=== PATIENT | male | born 1975 | race Caucasian/White ===

== ENCOUNTER 2020-02-18 10:34 | Emergency (ER) | payer BC ==
[2020-02-18 11:31] LABS: HEMATOCRIT 45.1 % (42.0-52.0); HEMOGLOBIN 14.8 g/dL (13.5-18.0); MEAN CELL VOLUME 93 fl (78-100); MEAN CORPUSCULAR HEMOGLOBIN 31 pg (27-31); MEAN CORPUSCULAR HGB CONC 33 g/dL (33-37); MEAN PLATELET VOLUME 10.8 fl (7.4-10.4); PLATELET COUNT 201 K/mm3 (130-400); RED BLOOD COUNT 4.84 M/mm3 (4.20-5.60); RED CELL DISTRIBUTION WIDTH 12.7 % (11.5-14.5); WHITE BLOOD COUNT 8.9 K/mm3 (4.8-10.8)
[2020-02-18 11:37] LABS: ALBUMIN 4.9 g/dL (3.5-5.0); POTASSIUM 4.2 mmol/L (3.5-5.1)
[2020-02-18 11:38] LABS: SODIUM 142 mmol/L (136-145)
[2020-02-18 11:39] LABS: CALCIUM 9.5 mg/dL (8.3-10.5)
[2020-02-18 11:40] LABS: GLUCOSE 109 mg/dL (75-110); TOTAL PROTEIN 7.4 g/dL (6.4-8.3)
[2020-02-18 11:41] LABS: CARBON DIOXIDE 25 mmol/L (22-29)
[2020-02-18 11:42] LABS: TOTAL BILIRUBIN 0.7 mg/dL (0.2-1.2)
[2020-02-18 11:45] LABS: AST-SGOT 20 U/L (5-34); BAND 1 % (0-10); LYMPHOCYTE 10 % (20-51); MONOCYTE 3 % (3-10); NEUTROPHILS 86 % (42-75)
[2020-02-18 11:46] LABS: ALT/SGPT 23 U/L (0-55)
[2020-02-18 11:50] LABS: PARTIAL THROMBOPLASTIN TIME 19.3 SECONDS (21.0-32.0); PROTHROMBIN TIME 10.5 SECONDS (9.0-12.0)
[2020-02-18 11:54] LABS: TROPONIN-I < 0.03 ng/mL (<0.030)
[2020-02-18 12:44] LABS: URINE APPEARANCE CLOUDY; URINE BILIRUBIN NEGATIVE (NEGATIVE); URINE BLOOD TRACE (NEGATIVE); URINE COLOR YELLOW; URINE GLUCOSE NEGATIVE (NEGATIVE); URINE KETONE 3+ (NEGATIVE); URINE LEUKOCYTE ESTERASE NEGATIVE (NEGATIVE); URINE NITRATE NEGATIVE (NEGATIVE); URINE PROTEIN(semi-quant) TRACE mg/dL (NEGATIVE); URINE UROBILINOGEN NORMAL (NORMAL)
[2020-02-18 13:39] VITALS: BP 113/78
== END 2020-02-18 13:40 | disposition home or self-care (01) ==
LOC: ED 10:34
PROVIDERS: Nurse Practitioner
DX: R00.1 Bradycardia, unspecified (principal); R42 Dizziness and giddiness; R55 Syncope and collapse; F12.90 Cannabis use, unspecified, uncomplicated; Z90.89 Acquired absence of other organs